=== PATIENT | female | born 1985 | race Caucasian/White ===

== ENCOUNTER 2017-10-21 17:32 | Emergency (ER) | payer BC, OTHER ==
--- NOTE | 2017-10-21 18:03 | EDM.PDOC ---
<James Woodward - Last Filed: 10/21/17 18:08> ED HPI GENERAL MEDICAL PROBLEM - General Chief Complaint: Lower Extremity Injury/Pain Stated Complaint: FELLED DOWN SOME STEPS Time Seen by Provider: 10/21/17 18:00 Source of Information: Reports: Patient - History of Present Illness INITIAL COMMENTS - FREE TEXT/NARRATIVE: HISTORY AND PHYSICAL: History of present illness: []Patient fell directed down steps in her home, was partially unwitnessed. A flight of 7 stairs ....patient is blind , the first step is offset somewhat longer step then the rest of the stairway. her dad heard some commotion and saw her sliding down the steps on her bottom however she complains of right knee pain there is abrasion on her right knee no obvious swelling or bruising Denies head injury or loss of consciousness no fever nausea vomiting chills sweats no chest pain shortness breath headache dizziness or palpitation no bowel or urine symptoms Review of systems: As per history of present illness and below otherwise all systems reviewed and negative. Past medical history: As per history of present illness and as reviewed below otherwise noncontributory. Surgical history: As per history of present illness and as reviewed below otherwise noncontributory. Social history: No reported history of drug or alcohol abuse. Family history: As per history of present illness and as reviewed below otherwise noncontributory. Physical exam: HEENT: Atraumatic, normocephalic, pupils reactive, negative for conjunctival pallor or scleral icterus, mucous membranes moist, throat clear, neck supple, nontender, trachea midline. Lungs: Clear to auscultation, breath sounds equal bilaterally, chest nontender. Heart: S1S2, regular, negative for clicks, rubs, or JVD. Abdomen: Soft, nondistended, nontender. Negative for masses or hepatosplenomegaly. Negative for costovertebral tenderness. Pelvis: Stable nontender. Genitourinary: Deferred. Rectal: Deferred. Extremities: Atraumatic, negative for cords or calf pain. Neurovascular unremarkable. Neuro: Awake, alert, oriented. Cranial nerves II through XII unremarkable. Cerebellum unremarkable. Motor and sensory unremarkable throughout. Exam nonfocal. Right lower extremity hip and ankle appear unaffected knee has an abrasion over the patella and full range of painless motion no redness warmth or open lesion entire limb is neurovascularly intact Diagnostics: []1 view pelvis Right knee complete HCG Therapeutics: []Rest ice ibuprofen Impression: []Right knee pain Small superficial abrasion over the patella Definitive disposition and diagnosis as appropriate pending reevaluation and review of above. - Related Data Allergies Allergy/AdvReac Type Severity Reaction Status Date / Time sulfamethoxazole Allergy Other Verified 10/21/17 17:55 [From Bactrim] trimethoprim [From Bactrim] Allergy Other Verified 10/21/17 17:55 Course - Vital Signs Last Recorded V/S: Last Vital Signs Temp 37.3 C 10/21/17 17:49 Pulse 78 10/21/17 17:49 Resp 18 10/21/17 17:49 BP 152/77 H 10/21/17 17:49 Pulse Ox 99 10/21/17 17:49 - Orders/Labs/Meds Orders: Active Orders 24 hr Category Date Time Status Knee 3V Rt [CR] Stat Exams 10/21/17 17:59 Ordered Pelvis 1V or 2V [CR] Stat Exams 10/21/17 17:59 Ordered Labs: Laboratory Tests 10/21/17 Range/Units 18:15 Urine HCG, Qual NEGATIVE (NEGATIVE) Departure - Departure Disposition: Home, Self-Care 01 Clinical Impression: Fall, Knee injury, Contusion - Discharge Information Referrals: PCP,None [Primary Care Provider] - Forms: ED Department Discharge Additional Instructions: The following information is given to patients seen in the emergency department who are being discharged to home. This information is to outline your options for follow-up care. We provide all patients seen in our emergency department with a follow-up referral. The need for follow-up, as well as the timing and circumstances, are variable depending upon the specifics of your emergency department visit. If you don't have a primary care physician on staff, we will provide you with a referral. We always advise you to contact your personal physician following an emergency department visit to inform them of the circumstance of the visit and for follow-up with them and/or the need for any referrals to a consulting specialist. The emergency department will also refer you to a specialist when appropriate. This referral assures that you have the opportunity for followup care with a specialist. All of these measure are taken in an effort to provide you with optimal care, which includes your followup. Under all circumstances we always encourage you to contact your private physician who remains a resource for coordinating your care. When calling for followup care, please make the office aware that this follow-up is from your recent emergency room visit. If for any reason you are refused follow-up, please contact the [facility] emergency department at and asked to speak to the emergency department charge nurse. Motrin/Tylenol as directed follow-up primary medical doctor 1-2 days return as needed as discussed <Harprete Jacobson - Last Filed: 10/21/17 19:06> Review of Systems - Review of Systems Review Of Systems: ROS reveals no pertinent complaints other than HPI. ED EXAM, GENERAL - Physical Exam Exam: See Below (The dictation) Course - Vital Signs Text/Narrative:: Patient emergency department course was unremarkable x-ray left knee and pelvis were negative for fracture dislocation patient discharge Motrin/Tylenol as directed follow-up private doctor one of today's return as needed as discussed Departure - Departure Time of Disposition: 19:05 Condition: Good
--- NOTE | 2017-10-22 17:08 | CR ---
EXAM DATE: 10/21/17 PATIENT'S AGE: 32 Patient: LEEANNE CARRIZALES Facility: [place], [place] Site . Site : 1985 Study: XRay Pelvis [id number]/21/2017 7:09:41 PM Ordering Physician: Stephen Ramirez Final Report: Indication: Fall. Technique: Pelvis one view. Comparison: None. Findings: No acute fracture or dislocation. No additional osseous abnormality. Soft tissues as imaged are unremarkable. Impression: No acute osseous abnormality. Dictated by Kenrick Valderrama MD @ 10/21/2017 7:34:37 PM Dictated by: Kenrick Valderrama MD @ 10/21/2017 19:34:46 (Electronic Signature) Report Signed by Proxy. [facility]
--- NOTE | 2017-10-22 17:09 | CR ---
EXAM DATE: 10/21/17 PATIENT'S AGE: 32 Patient: LEEANNE CARRIZALES Facility: [place], [place] Site . Site : 1985 Study: XRay Knee Right [id number]/21/2017 7:09:59 PM Ordering Physician: Stephen Ramirez Final Report: Indication: Fall. Technique: Right knee three views. Comparison: None. Findings: No acute fracture or dislocation. No additional osseous abnormality. Soft tissues as imaged are unremarkable. Impression: No acute osseous abnormality. Dictated by Kenrick Valderrama MD @ 10/21/2017 7:36:29 PM Dictated by: Kenrick Valderrama MD @ 10/21/2017 19:36:36 (Electronic Signature) Report Signed by Proxy. [facility]
== END 2017-10-21 19:15 | disposition home or self-care (01) ==
LOC: MW.ED 17:32
DX: S80.01XA Contusion of right knee, initial encounter (principal); Z88.1 Allergy status to other antibiotic agents; Z88.2 Allergy status to sulfonamides; W10.8XXA Fall (on) (from) other stairs and steps, initial encounter; Y92.009 Unspecified place in unspecified non-institutional (private) residence as the place of occurrence of the external cause
CPT/HCPCS: 72170; 72170-26; 73562-26-RT; 73562-RT; 81025; 99283

== ENCOUNTER 2024-01-24 20:26 | Emergency (ER) | payer BC, MEDICAID, OTHER ==
[2024-01-24] MEDS: Diphtheria,Pertussis(Acell),Tetanus Vaccine 0.5 ML Syringe IM ONE (21:09)
[2024-01-24] MEDS: Diphtheria/Tetanus Toxoids,Adult (Td) 0.5 ML Syringe IM ONE (21:11)
== END 2024-01-24 21:30 | disposition home or self-care (01) ==
LOC: MW.ED 20:26
DX: S01.511A Laceration without foreign body of lip, initial encounter (principal); J45.909 Unspecified asthma, uncomplicated; Z79.899 Other long term (current) drug therapy; Z88.2 Allergy status to sulfonamides; Z23 Encounter for immunization; X58.XXXA Exposure to other specified factors, initial encounter
CPT/HCPCS: 90471; 90715; 99282; 99282-25